=== PATIENT | female | born 1975 | race Caucasian/White ===

== ENCOUNTER 2017-11-06 07:39 | Emergency (ER) | payer BC ==
[~2017-11-06] VITALS: Ht 165.1 cm; Wt 63.5 kg
[~2017-11-06 07:39] MED LIST: LEVSOD175 PO; RXPHEN200 PO; SERT100 PO; SULTRIDS PO
[2017-11-06 08:26] LABS: BASOPHILS ABSOLUTE AUTO 0.02 K/mm3 (0.00-0.23); BASOPHILS PERCENT AUTO 0 % (0-2); EOSINOPHILS ABSOLUTE AUTO 0.01 K/mm3 (0.00-0.68); EOSINOPHILS PERCENT AUTO 0 % (0-6); Hematocrit 43.5 % (33.0-51.0); IMMATURE GRAN ABSOLUTE AUTO 0.03 K/mm3 (0.00-0.10); IMMATURE GRAN PERCENT AUTO 0 % (0-1); LYMPHOCYTES ABSOLUTE AUTO 0.31 K/mm3 (0.84-5.20); LYMPHOCYTES PERCENT AUTO 3 % (21-46); MONOCYTES ABSOLUTE AUTO 0.41 K/mm3 (0.16-1.47); MONOCYTES PERCENT AUTO 3 % (4-13); Mean Corpuscular HGB 30.7 pg (26.0-34.0); Mean Corpuscular HGB Conc 34.5 g/dL (31.5-36.5); Mean Corpuscular Volume 89 fL (80-100); Mean Platelet Volume 11.8 fL (9.1-12.4); NEUTROPHILS ABSOLUTE AUTO 11.68 K/mm3 (1.96-9.15); NEUTROPHILS PERCENT AUTO 94 % (41-73); Platelet Count 168 K/mm3 (150-400); RDW Coefficient Variation 11.8 % (11.7-14.2); RDW Standard Deviation 37.8 fL (35.1-46.3); Red Blood Cell Count 4.89 M/mm3 (3.80-5.20); White Blood Cell Count 12.46 K/mm3 (4.00-11.30)
[2017-11-06 08:40] LABS: Alanine Aminotransfer (ALT/SGP 18 U/L (12-78); Albumin, Blood 3.8 g/dL (3.4-5.0); Albumin/Globulin Ratio 1.2 (0.8-1.8); Alk Phos 54 U/L (50-136); Anion Gap 7 mmol/L (6-16); Aspartate Aminotrans (AST/SGOT 17 U/L (12-37); Bilirubin, Total 0.8 mg/dL (0.1-1.0); Blood Urea Nitrogen 15 mg/dL (8-24); Bun/Creatinine Ratio 21.7 (12.0-20.0); CO2, Blood 26 mmol/L (21-32); Calcium, Blood 8.5 mg/dL (8.5-10.1); Chloride, Blood 107 mmol/L (98-108); Creatinine, Blood 0.69 mg/dL (0.40-1.00); Globulin, Blood 3.1 g/dL (2.2-4.0); Glomerular Filtration Rate >60 (60-); Glucose, Blood 107 mg/dL (70-99); Potassium, Blood 3.8 mmol/L (3.5-5.5); Sodium, Blood 140 mmol/L (136-145); Total Protein, Blood 6.9 g/dL (6.4-8.2)
[2017-11-06] MEDS ORDERED: Zofran Odt8 MG SL (10:23)
== END 2017-11-06 10:28 | disposition home or self-care (01) ==
LOC: ER 07:39
PROVIDERS: Emergency Medicine
DX: K29.00 Acute gastritis without bleeding (principal); E03.9 Hypothyroidism, unspecified; F41.9 Anxiety disorder, unspecified; Z88.0 Allergy status to penicillin; Z79.899 Other long term (current) drug therapy
CPT/HCPCS: 36415; 80053; 85025; 96361; 96374; 96375; 99283; J0780; J1885; J2405; J7030

== ENCOUNTER 2019-01-19 07:58 | Emergency (ER) | payer BC ==
[~2019-01-19] VITALS: Ht 165.1 cm; Wt 61.2 kg
[~2019-01-19 07:58] MED LIST changes: +Zofran Odt8 MG SL
[2019-01-19] MEDS ORDERED: Ativan0.5 MG PO (08:16)
[2019-01-19] MEDS ORDERED: ONDA4ODT MM (08:40)
== END 2019-01-19 08:57 | disposition home or self-care (01) ==
LOC: ER 07:58
DX: F41.9 Anxiety disorder, unspecified (principal); Z88.0 Allergy status to penicillin
CPT/HCPCS: 99283

== ENCOUNTER → 2019-02-21 | Outpatient (CLI) | payer BC ==
[~2019-02-21] MED LIST changes: +Ativan0.5 MG PO; +ONDA4ODT MM
[2019-02-21 14:07] LABS: Free Thyroxine 1.23 ng/dL (0.70-1.60)
[2019-02-21 14:09] LABS: Thyroid Stimulating Hormone 0.012 uIU/mL (0.360-4.800)
== END | disposition home or self-care (01) ==
LOC: LAB 13:35 → LAB SHORT 13:35
PROVIDERS: Hospitalist
DX: E03.9 Hypothyroidism, unspecified (principal); Z12.4 Encounter for screening for malignant neoplasm of cervix
CPT/HCPCS: 84439; 84443; G0145

== ENCOUNTER → 2019-08-22 | Outpatient (CLI) | payer BC | END | disposition home or self-care (01) | LOC: PLD 14:24 → LAB SHORT 14:24 | DX: D22.5 Melanocytic nevi of trunk (principal) | CPT/HCPCS: 88305 ==

== ENCOUNTER → 2020-02-26 | Outpatient (CLI) | payer BC | LOC: LAB SHORT 14:24 → LAB 14:24 | DX: E03.9 Hypothyroidism, unspecified (principal) | CPT/HCPCS: 84439; 84443 ==

== ENCOUNTER → 2021-03-11 | Outpatient (CLI) | payer BC ==
[2021-03-11 16:45] LABS: Alanine Aminotransfer (ALT/SGP 24 U/L (12-78); Albumin, Blood 4.2 g/dL (3.4-5.0); Albumin/Globulin Ratio 1.3 (0.8-1.8); Alk Phos 78 U/L (50-136); Anion Gap 8 mmol/L (6-16); Aspartate Aminotrans (AST/SGOT 17 U/L (12-37); Bilirubin, Total 0.5 mg/dL (0.1-1.0); Blood Urea Nitrogen 19 mg/dL (8-24); Bun/Creatinine Ratio 24.4 (12.0-20.0); CHOL/HDL RATIO 3.1; CO2, Blood 24 mmol/L (21-32); Calcium, Blood 9.2 mg/dL (8.5-10.1); Chloride, Blood 108 mmol/L (98-108); Cholesterol 186 mg/dL (50-200); Creatinine, Blood 0.78 mg/dL (0.40-1.00); Globulin, Blood 3.2 g/dL (2.2-4.0); Glomerular Filtration Rate >60 (60-); Glucose, Blood 92 mg/dL (70-99); HDL Cholesterol 60 mg/dL (>39); LDL/HDL RATIO 1.8; Low Density Lipoprotein Chol 105 mg/dL (0-110); Potassium, Blood 3.9 mmol/L (3.5-5.5); Sodium, Blood 140 mmol/L (136-145); Thyroid Stimulating Hormone 0.268 uIU/mL (0.360-4.800); Total Protein, Blood 7.4 g/dL (6.4-8.2); Triglycerides 104 mg/dL (30-160); Very Low Density Lipoprot Chol 20 mg/dL (6-32)
[2021-03-12 10:10] LABS: SARS COV-2 IGG AB Negative (Negative)
== END | disposition home or self-care (01) ==
LOC: LAB SHORT 14:38 → LAB 14:38 → OLS 14:38
PROVIDERS: Hospitalist
DX: Z00.00 Encounter for general adult medical examination without abnormal findings (principal); Z13.220 Encounter for screening for lipoid disorders; Z11.9 Encounter for screening for infectious and parasitic diseases, unspecified; E89.0 Postprocedural hypothyroidism; Z20.822 Contact with and (suspected) exposure to COVID-19
CPT/HCPCS: 36415; 80053; 80061; 84439; 84443; 86769

== ENCOUNTER 2021-04-24 06:32 | Inpatient (IN) | payer BC ==
[~2021-04-24] VITALS: Ht 165.1 cm; Wt 62.0 kg
[~2021-04-24 06:32] MED LIST changes: +EUTHYROX175 MCG PO; -LEVSOD175 PO
[2021-04-24 07:03] LABS: BASOPHILS ABSOLUTE AUTO 0.02 K/mm3 (0.00-0.23); BASOPHILS PERCENT AUTO 0 % (0-2); EOSINOPHILS PERCENT AUTO 0 % (0-6); Hematocrit 40.8 % (33.0-51.0); Hemoglobin 14.1 g/dL (11.5-16.0); IMMATURE GRAN ABSOLUTE AUTO 0.14 K/mm3 (0.00-0.10); IMMATURE GRAN PERCENT AUTO 2 % (0-1); LYMPHOCYTES ABSOLUTE AUTO 0.61 K/mm3 (0.84-5.20); LYMPHOCYTES PERCENT AUTO 8 % (21-46); MONOCYTES ABSOLUTE AUTO 0.47 K/mm3 (0.16-1.47); MONOCYTES PERCENT AUTO 6 % (4-13); Mean Corpuscular HGB 30.5 pg (26.0-34.0); Mean Corpuscular HGB Conc 34.6 g/dL (31.5-36.5); Mean Corpuscular Volume 88 fL (80-100); Mean Platelet Volume 10.7 fL (9.1-12.4); NEUTROPHILS ABSOLUTE AUTO 6.63 K/mm3 (1.96-9.15); NEUTROPHILS PERCENT AUTO 84 % (41-73); Platelet Count 183 K/mm3 (150-400); Red Blood Cell Count 4.62 M/mm3 (3.80-5.20); White Blood Cell Count 7.87 K/mm3 (4.00-11.30)
[2021-04-24 07:22] LABS: Alanine Aminotransfer (ALT/SGP 110 U/L (12-78); Albumin, Blood 2.8 g/dL (3.4-5.0); Albumin/Globulin Ratio 0.8 (0.8-1.8); Alk Phos 44 U/L (50-136); Anion Gap 4 mmol/L (6-16); Aspartate Aminotrans (AST/SGOT 130 U/L (12-37); Bilirubin, Total 0.3 mg/dL (0.1-1.0); Blood Urea Nitrogen 5 mg/dL (8-24); Bun/Creatinine Ratio 9.9 (12.0-20.0); CO2, Blood 28 mmol/L (21-32); Calcium, Blood 7.8 mg/dL (8.5-10.1); Chloride, Blood 104 mmol/L (98-108); Globulin, Blood 3.4 g/dL (2.2-4.0); Glomerular Filtration Rate >60 (60-); Glucose, Blood 102 mg/dL (70-99); Sodium, Blood 136 mmol/L (136-145); Total Protein, Blood 6.2 g/dL (6.4-8.2); Troponin I <0.015 ng/mL (0.000-0.040)
[2021-04-24 11:54] LABS: CHOL/HDL RATIO 2.2; Cholesterol 108 mg/dL (50-200); HDL Cholesterol 48 mg/dL (>39); LDL/HDL RATIO 0.8; Low Density Lipoprotein Chol 40 mg/dL (0-110); Triglycerides 101 mg/dL (30-160); Very Low Density Lipoprot Chol 20 mg/dL (6-32)
--- NOTE | 2021-04-24 13:02 | NUR ---
ADMIT SUMMARY PT ARRIVED TO UNIT FROM ED @ APPROX 1030, A&O, ABLE TO STAND AND AMBULATE TO BED WITH SBA ONLY. PT DENIES ANY DISTRESS AT THIS TIME. VSS. ON 5 L/MIN NC AND SATING 94%, LUNG SOUNDS DIM T/O. ORIENTED TO ROOM AND CALL SYSTEM. ADMIT COMPLETED. PT IS CURRENTLY PRONING AND CALL LIGHT IS WITHIN REACH.
--- NOTE | 2021-04-24 16:31 | NUR ---
SHIFT SUMMARY PT REMAINS A&O, VSS, CALM AND COOPERATIVE c CARE, CALLS APPROPRIATELY. ON 5 L/MIN VIA NC AND SATING ABOVE 90%. PT REPORTS COUGH AND HEADACHE, MEDICATED PER EMAR. PT IS CURRENTLY PRONING AND PRONED FOR A MAJORITY OF SHIFT SINCE ARRIVAL TO UNIT. CALL LIGHT IS WITHIN REACH AND PT DENIES ANY DISTRESS AT THIS TIME.
[2021-04-25 04:54] LABS: BASOPHILS ABSOLUTE AUTO 0.03 K/mm3 (0.00-0.23); BASOPHILS PERCENT AUTO 1 % (0-2); EOSINOPHILS PERCENT AUTO 0 % (0-6); Hematocrit 43.1 % (33.0-51.0); Hemoglobin 14.8 g/dL (11.5-16.0); Mean Corpuscular HGB 30.3 pg (26.0-34.0); Mean Corpuscular HGB Conc 34.3 g/dL (31.5-36.5); Mean Corpuscular Volume 88 fL (80-100); Mean Platelet Volume 10.7 fL (9.1-12.4); Platelet Count 188 K/mm3 (150-400); RDW Coefficient Variation 11.9 % (11.7-14.2); RDW Standard Deviation 38.8 fL (35.1-46.3); Red Blood Cell Count 4.89 M/mm3 (3.80-5.20); White Blood Cell Count 6.49 K/mm3 (4.00-11.30)
[2021-04-25 04:55] LABS: IMMATURE GRAN ABSOLUTE AUTO 0.13 K/mm3 (0.00-0.10); IMMATURE GRAN PERCENT AUTO 2 % (0-1); LYMPHOCYTES ABSOLUTE AUTO 0.85 K/mm3 (0.84-5.20); LYMPHOCYTES PERCENT AUTO 13 % (21-46); MONOCYTES ABSOLUTE AUTO 0.57 K/mm3 (0.16-1.47); MONOCYTES PERCENT AUTO 9 % (4-13); NEUTROPHILS ABSOLUTE AUTO 4.91 K/mm3 (1.96-9.15); NEUTROPHILS PERCENT AUTO 76 % (41-73)
[2021-04-25 05:13] LABS: Alanine Aminotransfer (ALT/SGP 108 U/L (12-78); Albumin, Blood 2.7 g/dL (3.4-5.0); Albumin/Globulin Ratio 0.8 (0.8-1.8); Alk Phos 48 U/L (50-136); Anion Gap 5 mmol/L (6-16); Aspartate Aminotrans (AST/SGOT 105 U/L (12-37); Bilirubin, Total 0.4 mg/dL (0.1-1.0); Blood Urea Nitrogen 9 mg/dL (8-24); CO2, Blood 29 mmol/L (21-32); Calcium, Blood 8.3 mg/dL (8.5-10.1); Chloride, Blood 101 mmol/L (98-108); Creatinine, Blood 0.47 mg/dL (0.40-1.00); Globulin, Blood 3.6 g/dL (2.2-4.0); Glomerular Filtration Rate >60 (60-); Glucose, Blood 133 mg/dL (70-99); Potassium, Blood 3.6 mmol/L (3.5-5.5); Sodium, Blood 135 mmol/L (136-145); Total Protein, Blood 6.3 g/dL (6.4-8.2)
[2021-04-25 05:58] LABS: BASOPHILS PERCENT MAN 0 % (0-2); EOSINOPHILS PERCENT MAN 0 % (0-6); LYMPHOCYTES % ATYPICAL MANUAL 1 % (0-0); LYMPHOCYTES ABSOLUTE MAN 0.64 K/mm3 (0.84-5.20); LYMPHOCYTES PERCENT MAN 9 % (21-46); METAMYELOCYTE ABSOLUTE MAN 0.06 K/mm3 (0.00-0.00); METAMYELOCYTE PERCENT MAN 1 % (0-0); MONOCYTES ABSOLUTE MAN 0.32 K/mm3 (0.16-1.47); MONOCYTES PERCENT MAN 5 % (4-13); NEUTROPHILS ABSOLUTE MAN 5.32 K/mm3 (1.96-9.15); SEG NEUTROPHILS PERCENT MAN 82 % (41-73); TOTAL CELLS COUNTED 100
[2021-04-25 05:59] LABS: OTHER CELL PERCENT MAN 2 % (0-0)
--- NOTE | 2021-04-25 07:26 | NUR ---
SHIFT SUMMARY PT IS A 46 Y/O FEMALE, ADMITTED FOR ACUTE HYPOXEMIC RESPIRATORY FAILURE R/T COVID-19. SHE IS A&O X 4, VERY ANXIOUS. PT WAS ON 6L AT START OF SHIFT, SATTING > 90%. AT 2228, PT CALLED A RAPID RESPONSE ON HERSELF AFTER REQUESTING A BREATHING TX FROM RT. PT STATED THAT SHE "FELT LIKE I CAN'T BREATHE" AND APPEARED VERY ANXIOUS. AT THAT TIME, PT WAS ON 15L OF O2 THAT SHE TOLD RT SHE TURNED UP HERSELF BECAUSE "IT FELT LIKE 6 L WASN'T ENOUGH". O2 SATS AT THAT TIME WERE 96-98%. PT WAS GIVEN A BREATHING TX AT THAT TIME. AFTER SHE CALMED DOWN AND TX WAS COMPLETE, O2 TURNED DOWN TO 12 L, AND THEN DOWN TO 7L BY RT. PT REQUESTING FREQUENT BREATHING TX DURING THE NIGHT. SHE WAS MEDICATED ONCE FOR BACK PAIN WITH PRN TYLENOL, AND REQUESTED TO TRY SITTING UP IN THE BED. PT THEN BEGAN STATING THAT "I FEEL LIKE I CAN'T BREATH", WATCHING HER O2 MONITOR AND HYPERVENTILATING. SHE THEN RETURNED TO PRONE POSITION. AFTER REPORTING TO HOSPITALIST DR MOREL, PRN PO ATIVAN ORDERED FOR ANXIETY. PT WAS NOTED TO HAVE TURNED UP HER O2 AT LEAST TWICE DURING THE NIGHT. CURRENTLY AT 7 L AT THE END OF NOC SHIFT, SATTING 95-96%. SHE WAS ALSO MEDICATED ONCE FOR NAUSEA AT HS. VITAL SIGNS STABLE. NO OTHER ACUTE CHANGES IN PT CONDITION NOTED DURING THE NIGHT. REPORT GIVEN TO ONCOMING RN.
--- NOTE | 2021-04-25 08:49 | NUR ---
TRANSFER NOTE PT TRANSFERED TO U @ APPROX 0830 VIA BED. ALL BELONGINGS WITH PT, REPORT GIVEN TO CHARGE NURSE RUPA.
[2021-04-25 10:24] LABS: Source, Urine Clean Catch
[2021-04-25 10:28] LABS: Appearance, Urine Clear (Clear); Bilirubin, Urine Neg (Neg); Blood, Urine Neg (Neg); Color, Urine Yellow (P-Yellow); Glucose Qualitative, Urine Neg (Neg); Ketones, Urine Neg (Neg); Leukocyte Esterase, Urine Neg (Neg); Nitrite, Urine Neg (Neg); Protein, Urine Neg (Neg); Specific Gravity, Urine 1.005 (1.003-1.022); Urobilinogen, Urine NORM (Normal)
--- NOTE | 2021-04-25 18:51 | NUR ---
SHIFT SUMMARY: PT A&Ox4, USING CALL LIGHT APPROPRIATELY. PT MAINTAINING O2 SATS >93% ON HUMIDIFIED HI JOHN O2 AT 3 L/MIN THEN TITRATED TO 2 L/MIN, PT TOLERATING WELL BUT DESATS W/EXERTION. INDWELLING LAZCANO CATHETER PLACED TO AID WITH BEDREST. PT SELF PRONING AND LYING ON SIDE, ABLE TO REPOSITION WITH MINIMAL ASSISTANCE. PE STUDY COMPLETED TODAY, NEGATIVE FOR PE. WILL CONTINUE TO MONITOR AND TREAT ACCORDINGLY UNTIL CHANGE OF SHIFT.
[2021-04-26 00:06] LABS: HBSAG SCREEN Negative (Negative); HEP B CORE AB, TOT Negative (Negative); HEP C VIRUS AB <0.1 (0.0-0.9)
--- NOTE | 2021-04-26 05:49 | NUR ---
SHIFT SUMMARY NO ACUTE CHANGES THIS SHIFT. PT A&OX4. MILDLY ANXIOUS, MEDICATED W/ ATIVAN PER EMAR. SP02>90% ON 2L HUMIDIFIED NC. PT C/O OF DRY COUGH, MEDICATED W/ TESSLON PEARLS PER EMAR. VSS. PT PRONED SELF MOST OF NIGHT, LAID ON SIDE WHEN NOT PRONED. LAZCANO CATHETER DRAINING CLEAR YELLOW URINE TO GRAVITY. AT BEGINNING OF SHIFT, CBG RESULT WAS 50. PT DRANK 2 CONTAINERS OF ORANGE JUICE. REPEAT CBG WAS 217. PT SLEPT MOST OF NIGHT. CALL LIGHT IN REACH. WILL GIVE REPORT TO ONCOMING NURSE.
--- NOTE | 2021-04-26 18:48 | NUR ---
SHIFT SUMMARY: NO ACUTE CHANGES T/OUT SHIFT. PT CONTINUES A&O, USING CALL LIGHT APPROPRIATELY. PT MAINTAINING O2 SATS >93%, ON HUMIDIFIED HI JOHN NC AT 2-4 L/MIN. PT OOB TODAY TO BEDSIDE CHAIR FOR APPROX 1 HOUR, HAS INCREASED COUGHING AND DESATURATION WITH MOVEMENT, BUT OVERALL TOLERATES WELL THEN BACK TO BED FOR SLEEP. WEAKNESS CONTINUES, PT STATES SOME IMPROVEMENT TO APPETITE. INDWELLING LAZCANO CONTINUES DRAINING TO GRAVITY, URINE IS CLEAR BUT COLOR HAS BECOME A DARKER YELLOW. WILL CONTINUE TO MONITOR AND TREAT ACCORDINGLY UNTIL CHANGE OF SHIFT.
[2021-04-27 04:08] LABS: Hematocrit 41.5 % (33.0-51.0); Hemoglobin 14.2 g/dL (11.5-16.0); Mean Corpuscular HGB 30.1 pg (26.0-34.0); Mean Corpuscular HGB Conc 34.2 g/dL (31.5-36.5); Mean Corpuscular Volume 88 fL (80-100); Mean Platelet Volume 10.9 fL (9.1-12.4); Platelet Count 270 K/mm3 (150-400); RDW Coefficient Variation 11.6 % (11.7-14.2); RDW Standard Deviation 37.3 fL (35.1-46.3); Red Blood Cell Count 4.71 M/mm3 (3.80-5.20); White Blood Cell Count 8.25 K/mm3 (4.00-11.30)
[2021-04-27 04:32] LABS: Alanine Aminotransfer (ALT/SGP 170 U/L (12-78); Albumin, Blood 2.6 g/dL (3.4-5.0); Albumin/Globulin Ratio 0.8 (0.8-1.8); Alk Phos 51 U/L (50-136); Anion Gap 3 mmol/L (6-16); Aspartate Aminotrans (AST/SGOT 97 U/L (12-37); Bilirubin, Total 0.4 mg/dL (0.1-1.0); Blood Urea Nitrogen 11 mg/dL (8-24); CO2, Blood 31 mmol/L (21-32); Calcium, Blood 8.2 mg/dL (8.5-10.1); Chloride, Blood 102 mmol/L (98-108); Creatinine, Blood 0.48 mg/dL (0.40-1.00); Globulin, Blood 3.3 g/dL (2.2-4.0); Glomerular Filtration Rate >60 (60-); Glucose, Blood 102 mg/dL (70-99); Potassium, Blood 4.2 mmol/L (3.5-5.5); Sodium, Blood 136 mmol/L (136-145); Total Protein, Blood 5.9 g/dL (6.4-8.2)
--- NOTE | 2021-04-27 06:18 | NUR ---
SHIFT SUMMARY PATIENT RESTING COMFORTABLE IN BED. BED IS IN LOW POSITON. CALL LIGHT IS IN REACH. PATIENT WAS ABLE TO PRONE HERSELF DURING THE NIGHT. SHE IS ON 2L HIGH FLOW SATING ABOVE 90%. VITALS HAVE BEEN STABLE. GOOD PROGRESS DURING THE NIGHT. WILL CONTINUE TO MONITOR.
--- NOTE | 2021-04-27 15:24 | NUR ---
PT HAS BEEN RESTING WELL MOST OF THE DAY. SP02 HAS REMAINED >95% ON 2L 02 VIA HIFLOW NASAL CANULA. NO CONCERNS AT THIS TIME. WILL CONTINUE TO MONITOR.
--- NOTE | 2021-04-27 18:30 | NUR ---
NO ACUTE EVENTS TODAY. PT HAS BEEN RESTING WELL, O2 NEEDS HAVE REMAINED STABLE.
[2021-04-28 03:46] LABS: Hematocrit 40.3 % (33.0-51.0); Mean Corpuscular HGB 30.6 pg (26.0-34.0); Mean Corpuscular HGB Conc 34.7 g/dL (31.5-36.5); Mean Corpuscular Volume 88 fL (80-100); Mean Platelet Volume 10.6 fL (9.1-12.4); Platelet Count 280 K/mm3 (150-400); RDW Coefficient Variation 11.7 % (11.7-14.2); RDW Standard Deviation 37.5 fL (35.1-46.3); Red Blood Cell Count 4.58 M/mm3 (3.80-5.20); White Blood Cell Count 10.05 K/mm3 (4.00-11.30)
[2021-04-28 04:08] LABS: Alanine Aminotransfer (ALT/SGP 217 U/L (12-78); Albumin, Blood 2.6 g/dL (3.4-5.0); Albumin/Globulin Ratio 0.8 (0.8-1.8); Alk Phos 62 U/L (50-136); Anion Gap 5 mmol/L (6-16); Aspartate Aminotrans (AST/SGOT 113 U/L (12-37); Bilirubin, Total 0.4 mg/dL (0.1-1.0); Blood Urea Nitrogen 10 mg/dL (8-24); Bun/Creatinine Ratio 19.6 (12.0-20.0); CO2, Blood 30 mmol/L (21-32); Calcium, Blood 8.2 mg/dL (8.5-10.1); Chloride, Blood 102 mmol/L (98-108); Creatinine, Blood 0.51 mg/dL (0.40-1.00); Globulin, Blood 3.2 g/dL (2.2-4.0); Glomerular Filtration Rate >60 (60-); Glucose, Blood 95 mg/dL (70-99); Potassium, Blood 3.9 mmol/L (3.5-5.5); Sodium, Blood 137 mmol/L (136-145); Total Protein, Blood 5.8 g/dL (6.4-8.2)
--- NOTE | 2021-04-28 05:36 | NUR ---
SHIFT SUMMARY PATIENT IS RESTING COMFORTABLY IN BED. VITALS HAVE BEEN STABLE. PATIENT IS ON 2L NC SATURATING ABOVE 95%. PATIENT COMPLAINED OF BACK PAIN SEE EMAR FOR INTERVENTION. BED IS IN LOW POSTION. CALL LIGHT IS IN REACH. PATIENT DID NOT GET UP OUT OF BED DURING THE SHIFT. WILL CONTINUE TO MONITOR.
--- NOTE | 2021-04-28 10:21 | NUR ---
CARE ASSUMPTION PATIENT A/O X4. VSS. SPO2 >90% ON HIGH FLOW NC 2L. PATIENT IS RESTING IN BED. PATIENT REPORTS OF A HEADACHE RATED AT 5/10, AND RECEIVED TYLENOL PER EMAR. LAZCANO CATH IN PLACE DRAINING WITH GRAVITY, CLEAR YELLOW URINE. CALL LIGHT WITHIN REACH AND BED IN LOWEST POSITION.
--- NOTE | 2021-04-28 18:04 | NUR ---
SHIFT SUMMARY PATIENT A/0X4. VSS. SPOW >90% ON 2L HIGH FLOW NC. PATIENT WAS ABLE TO AMBULATE TO BATHROOM AND HAVE A SHOWER WITH SELF ASSITANCE. PATIENT HAS HAD A MILD HEADACHE THROUGHOUT THE DAY THAT HAS SOME RELEIF WITH MEDICATION FROM EMAR. NENO IS OUT. NO ACUTE CHANGES THIS SHIFT. CALL LIGHT WITHIN REACH AND BED IN LOWEST POSITION. WILL CONTINUE TO MONITOR AND PROVIDE CARE UNTIL HAND OFF WITH SKIDDER LEVER OPERATOR.
[2021-04-29 04:04] LABS: BASOPHILS ABSOLUTE AUTO 0.03 K/mm3 (0.00-0.23); BASOPHILS PERCENT AUTO 0 % (0-2); EOSINOPHILS ABSOLUTE AUTO 0.02 K/mm3 (0.00-0.68); EOSINOPHILS PERCENT AUTO 0 % (0-6); Hematocrit 40.3 % (33.0-51.0); Hemoglobin 14.3 g/dL (11.5-16.0); IMMATURE GRAN PERCENT AUTO 2 % (0-1); LYMPHOCYTES ABSOLUTE AUTO 0.91 K/mm3 (0.84-5.20); LYMPHOCYTES PERCENT AUTO 9 % (21-46); MONOCYTES ABSOLUTE AUTO 0.63 K/mm3 (0.16-1.47); MONOCYTES PERCENT AUTO 6 % (4-13); Mean Corpuscular HGB Conc 35.5 g/dL (31.5-36.5); Mean Corpuscular Volume 87 fL (80-100); Mean Platelet Volume 11.3 fL (9.1-12.4); NEUTROPHILS ABSOLUTE AUTO 8.93 K/mm3 (1.96-9.15); NEUTROPHILS PERCENT AUTO 83 % (41-73); Platelet Count 302 K/mm3 (150-400); RDW Coefficient Variation 11.7 % (11.7-14.2); RDW Standard Deviation 37.6 fL (35.1-46.3); Red Blood Cell Count 4.62 M/mm3 (3.80-5.20); White Blood Cell Count 10.72 K/mm3 (4.00-11.30)
[2021-04-29 04:43] LABS: Alanine Aminotransfer (ALT/SGP 249 U/L (12-78); Albumin, Blood 2.6 g/dL (3.4-5.0); Albumin/Globulin Ratio 0.8 (0.8-1.8); Alk Phos 92 U/L (50-136); Anion Gap 5 mmol/L (6-16); Aspartate Aminotrans (AST/SGOT 115 U/L (12-37); Bilirubin, Total 0.5 mg/dL (0.1-1.0); Blood Urea Nitrogen 11 mg/dL (8-24); Bun/Creatinine Ratio 22.4 (12.0-20.0); CO2, Blood 29 mmol/L (21-32); Calcium, Blood 8.9 mg/dL (8.5-10.1); Chloride, Blood 100 mmol/L (98-108); Creatinine, Blood 0.49 mg/dL (0.40-1.00); Globulin, Blood 3.4 g/dL (2.2-4.0); Glomerular Filtration Rate >60 (60-); Glucose, Blood 101 mg/dL (70-99); Potassium, Blood 3.9 mmol/L (3.5-5.5); Sodium, Blood 134 mmol/L (136-145)
--- NOTE | 2021-04-29 06:18 | NUR ---
SHIFT SUMMARY NO ACUTE EVENTS THIS SHIFT. PT VSS. DENIES PAIN OR DISCOMFORT. O2 SATS >96% ON 2L NC. OCCASIONAL COUGH. PT SLEPT THROUGH FIRST HALF OF NIGHT, UNTIL BEING AWAKE SINCE 299. CALL ALARM AT SIDE. WILL CONTINUE TO MONITOR UNTIL REPORT GIVEN
--- NOTE | 2021-04-29 09:00 | NUR ---
CARE ASSUMPTION PATIENT IS A/OX4. VSS. SPO2 >90% ON 2L NC. RYAN INTO TO SEE PATIENT THIS MORNING AND STATES PATIENT CAN BE DISCHARGED AFTER HOME 02 EVAL. LUNG SOUNDS CLEAR. CALL LIGHT WITHIN REACH AND BED IN LOWEST POSITION. WILL CONTINUE TO MONITOR AND PROVIDE CARE.
[2021-04-29] MEDS ORDERED: ALBU90OI INH (11:12)
[2021-04-29] MEDS ORDERED: DECADRON6 M1 PO (11:13)
--- NOTE | 2021-04-29 15:54 | NUR ---
PATIENT DISCHARGE THIS RN PROVIDED PATIENT WITH DISCHARGE INFORMATION AND GATHERED THE PATIENTS BELONGINGS. PATIENT LEFT WITH BELONGINGS AND DISCHARGE EDUCATION.
== END 2021-04-29 14:55 | disposition home or self-care (01) | DRG 177 ==
LOC: ER 06:32 → ERHOLD 09:41 → PCU 09:41 → MEDS 10:27 → PCU 04-25 08:44
PROVIDERS: Emergency Medicine; Family Medicine; Internal Medicine; ADMIT Hospitalist
PROC: 5A0935A Assistance with Respiratory Ventilation, Less than 24 Consecutive Hours, High Flow/Velocity Cannula (ICD-10-PCS; principal; 2021-04-24)
PROC: 3E0333Z Introduction of Anti-inflammatory into Peripheral Vein, Percutaneous Approach (ICD-10-PCS; 2021-04-24)
PROC: 8E0ZXY6 Isolation (ICD-10-PCS; 2021-04-24)
PROC: XW033E5 Introduction of Remdesivir Anti-infective into Peripheral Vein, Percutaneous Approach, New Technology Group 5 (ICD-10-PCS; 2021-04-25)
DX: U07.1 COVID-19 (principal); J96.01 Acute respiratory failure with hypoxia; J12.82 Pneumonia due to coronavirus disease 2019; E03.9 Hypothyroidism, unspecified; F41.9 Anxiety disorder, unspecified; R74.01 Elevation of levels of liver transaminase levels; Z98.890 Other specified postprocedural states; Z88.0 Allergy status to penicillin; Z79.899 Other long term (current) drug therapy
CPT/HCPCS: 36415; 71045; 71260; 80053; 80061; 81003; 82728; 82947; 84145; 84443; 84484; 85025; 85027; 85379; 86140; 86141; 86704; 86708; 86803; 87340; 93005; 93010; 94640; 94762; 96374; 99285-25; A9270; J1100; J1650; J2405; J7030; J7050; M0243; Q0243; Q9967

== ENCOUNTER → 2021-05-04 | Outpatient (CLI) | payer BC ==
[~2021-05-04] MED LIST changes: +ALBU90OI INH; +DECADRON6 M1 PO
[2021-05-04 18:38] LABS: Alanine Aminotransfer (ALT/SGP 122 U/L (12-78); Albumin, Blood 2.8 g/dL (3.4-5.0); Albumin/Globulin Ratio 0.8 (0.8-1.8); Alk Phos 100 U/L (50-136); Anion Gap 6 mmol/L (6-16); Aspartate Aminotrans (AST/SGOT 39 U/L (12-37); Bilirubin, Total 0.3 mg/dL (0.1-1.0); Blood Urea Nitrogen 16 mg/dL (8-24); CO2, Blood 28 mmol/L (21-32); Calcium, Blood 8.8 mg/dL (8.5-10.1); Chloride, Blood 106 mmol/L (98-108); Creatinine, Blood 0.67 mg/dL (0.40-1.00); Globulin, Blood 3.7 g/dL (2.2-4.0); Glomerular Filtration Rate >60 (60-); Glucose, Blood 95 mg/dL (70-99); Potassium, Blood 3.8 mmol/L (3.5-5.5); Sodium, Blood 140 mmol/L (136-145); Total Protein, Blood 6.5 g/dL (6.4-8.2)
== END | disposition home or self-care (01) ==
LOC: LAB SHORT 15:00 → LAB 15:00
PROVIDERS: Hospitalist
DX: R79.89 Other specified abnormal findings of blood chemistry (principal)
CPT/HCPCS: 80053

== ENCOUNTER → 2021-05-25 | Outpatient (CLI) | payer BC ==
[2021-05-25 15:50] LABS: Alanine Aminotransfer (ALT/SGP 24 U/L (12-78); Albumin, Blood 3.7 g/dL (3.4-5.0); Albumin/Globulin Ratio 1.2 (0.8-1.8); Alk Phos 79 U/L (50-136); Anion Gap 5 mmol/L (6-16); Aspartate Aminotrans (AST/SGOT 19 U/L (12-37); Bilirubin, Total 0.5 mg/dL (0.1-1.0); Blood Urea Nitrogen 16 mg/dL (8-24); Bun/Creatinine Ratio 24.5 (12.0-20.0); CO2, Blood 25 mmol/L (21-32); Calcium, Blood 8.9 mg/dL (8.5-10.1); Chloride, Blood 108 mmol/L (98-108); Creatinine, Blood 0.65 mg/dL (0.40-1.00); Globulin, Blood 3.2 g/dL (2.2-4.0); Glomerular Filtration Rate >60 (60-); Glucose, Blood 88 mg/dL (70-99); Potassium, Blood 3.9 mmol/L (3.5-5.5); Sodium, Blood 138 mmol/L (136-145); Total Protein, Blood 6.9 g/dL (6.4-8.2)
== END | disposition home or self-care (01) ==
LOC: LAB SHORT 10:05 → LAB 10:05
PROVIDERS: Hospitalist
DX: R79.89 Other specified abnormal findings of blood chemistry (principal)
CPT/HCPCS: 80053

== ENCOUNTER → 2022-04-06 | Outpatient (CLI) | payer BC | END | disposition home or self-care (01) | LOC: LAB SHORT 09:30 → LAB 09:30 | PROVIDERS: Hospitalist | DX: Z12.4 Encounter for screening for malignant neoplasm of cervix (principal) | CPT/HCPCS: G0145 ==

== ENCOUNTER → 2023-05-16 | Outpatient (CLI) | payer BC ==
[2023-05-16 12:27] LABS: Thyroid Stimulating Hormone <0.005 uIU/mL (0.360-4.800); Triiodothyronine, Free 3.11 pg/mL (2.18-3.98)
== END ==
LOC: LAB SHORT 11:16 → LAB 11:16
PROVIDERS: Hospitalist
DX: E89.0 Postprocedural hypothyroidism (principal)
CPT/HCPCS: 84439; 84443; 84481

== ENCOUNTER → 2024-04-10 | Outpatient (CLI) | payer BC ==
[2024-04-10 19:52] LABS: Free Thyroxine 0.98 ng/dL (0.70-1.60); Thyroid Stimulating Hormone <0.005 uIU/mL (0.360-4.800)
[2024-04-11 11:49] LABS: Triiodothyronine, Free 3.19 pg/mL (2.18-3.98)
== END ==
LOC: LAB SHORT 18:45
PROVIDERS: Hospitalist
DX: E89.0 Postprocedural hypothyroidism (principal)
CPT/HCPCS: 84439; 84443; 84481

== ENCOUNTER → 2025-04-03 | Outpatient (CLI) | payer BC ==
[2025-04-03 20:49] LABS: Thyroid Stimulating Hormone 0.46 uIU/mL (0.360-4.800)
== END ==
LOC: LAB 17:24 → LAB SHORT 17:24
PROVIDERS: Hospitalist
DX: Z12.4 Encounter for screening for malignant neoplasm of cervix (principal); E89.0 Postprocedural hypothyroidism
CPT/HCPCS: 84439; 84443; 84481; 87624; G0145

== ENCOUNTER → 2025-06-20 | Outpatient (CLI) | payer BC | END | disposition home or self-care (01) | LOC: LAB SHORT 16:44 → LAB 16:44 | DX: N39.0 Urinary tract infection, site not specified (principal) | CPT/HCPCS: 87086 ==